=== PATIENT | male | born 1995 | race Caucasian/White ===

== ENCOUNTER 2017-04-02 16:23 | Emergency (ER) | payer OTHER ==
[2017-04-02 16:53] VITALS: RESP 18
[2017-04-02] MEDS ORDERED: RX INFO: IV CONTRAST WAS GIVEN 1 EACH MISC MISCELLANE PRN (17:19)
[2017-04-02] MEDS ORDERED: SODIUM CHLORIDE 0.9% 1,000 ML IV ONE (17:19)
[2017-04-02 17:43] LABS: Appearance,Urine Clear (Clear); Basophils # (A) 0.1 k/uL (0-0.2); Basophils % (A) 1 %; Bilirubin,Urine Negative (Negative); CH 31.6; CHCM 36.2; Eosinophils # (A) 0.1 k/uL (0-0.7); Eosinophils % (A) 2 %; Glucose,Urine (UA) Negative (Negative); HCT 51.6 % (39.0-53.0); HDW 2.63; HGB 17.4 gm/dL (13.0-17.5); Ketones,Urine 4+ (Negative); Leukocyte Esterase,Urine Negative (Negative); Luc # (Auto) 0.17; Luc % (Auto) 2; Lymphocytes # (A) 0.9 k/uL (1.0-4.8); Lymphocytes % (A) 12 %; MCH 29.5 pg (25.0-35.0); MCHC 33.7 g/dL (31.0-37.0); MCV 87.6 fL (80.0-100.0); Mean Platelet Volume 7.9; Monocytes # (A) 0.5 k/uL (0-1.0); Monocytes % (A) 6 %; Neutrophils # (A) 5.7 k/uL (1.3-7.7); Neutrophils % (A) 77 %; Nitrite,Urine Negative (Negative); PH, Urine 5.5 (5.0-8.0); Protein,Urine Trace (Negative); RBC 5.89 m/uL (4.30-5.90); RDW 14.1 % (11.5-15.5); Specific Gravity,Urine 1.023 (1.001-1.035); UA Billing (MACRO vs. MICRO) CHEM; WBC 7.4 k/uL (3.8-10.6); WBC (Perox) 6.79
[2017-04-02 17:57] LABS: ALT 40 U/L (21-72); AST 28 U/L (17-59); Alkaline Phosphatase 78 U/L (38-126); Anion Gap 14 mmol/L; Blood Urea Nitrogen 12 mg/dL (9-20); Calcium 9.7 mg/dL (8.4-10.2); Carbon Dioxide 22 mmol/L (22-30); Chloride 104 mmol/L (98-107); Glucose 78 mg/dL (74-99); Non-African American GFR(MDRD) >60 (>60 ml/min/1.73 sqM); Potassium 4.8 mmol/L (3.5-5.1); Sodium 140 mmol/L (137-145); Total Bilirubin 1.6 mg/dL (0.2-1.3); Total Protein 7.9 g/dL (6.3-8.2)
--- NOTE | 2017-04-02 18:01 | CT ---
EXAMINATION TYPE: CT abdomen pelvis w con DATE OF EXAM: 04/02/2017 COMPARISON: NONE HISTORY: Generalizd abdominal pain x 3 years, worse in last 3 days with nausea, vomiting and changes in bowel habits. CT DLP: 374.20 mGycm Automated exposure control for dose reduction was used. TECHNIQUE: Helical acquisition of images was performed from the lung bases through the pelvis. CONTRAST: Performed without Oral Contrast and with IV Contrast, patient injected with 100 mL of Omnipaque 300. FINDINGS: Lung bases are clear. There is no pleural effusion. Heart size is normal. Liver spleen pancreas gallbladder appear normal. Bile ducts are not dilated. There is an oval-shaped low-density 4 x 2.5 cm area involving the upper pole left kidney. This could be an adrenal mass. There is a 2 cm cortical cyst in the left kidney. There is no hydronephrosis. There is no retroperitoneal adenopathy. There is no ascites. Bladder distends smoothly. I see no inte stinal wall thickening. There are no dilated loops. I see no bony destructive process. There is no si gn of appendicitis. IMPRESSION: LEFT RENAL CORTICAL CYST. LOW-DENSITY MASS IN THE REGION OF LEFT ADRENAL GLAND HAS LOW DENSITY AND CO NSISTENT WITH A MYELOLIPOMA.
--- NOTE | 2017-04-02 18:24 | ED ---
Abdominal Pain HPI - General Chief Complaint: Abdominal Pain Stated Complaint: Abd Pain Time Seen by Provider: 04/02/17 17:01 Source: patient Mode of arrival: ambulatory Limitations: no limitations - History of Present Illness Initial Comments: Patient is a 22-year-old male with no significant past medical history who presents to the ED via private vehicle for evaluation of abdominal pain. The patient states that he is experienced intermittent abdominal pain over the course of 3 years. He does report that while he was incarcerated for 2 years he did have less frequent episodes of abdominal pain. Patient reports that over the past 2-3 days he's had worsening epigastric and periumbilical abdominal pain which is now associated with nausea, anorexia and fatigue. Patient reports that he usually experiences an abdominal pain in his epigastric region which she rates as a 3 out of 10. He reports he experiences this most days. Patient reports that over the past 2-3 days his pain has increased to an 8 out of 10 and if he tries to eat or drink anything and is a 10 out of 10. Patient reports she's never experienced pain this severe in the past. He does report that one time 3 years ago he had similar abdominal pain and was seen at outside facility, workup at that facility revealed no acute findings and he was discharged home without any interventions. Patient denies any fevers, chills, headache, chest pain, shortness of breath, constipation or diarrhea. He denies any recent illnesses. He denies any formal diagnosis of inflammatory or irritable bowel disease. He does report a family history of it inflammatory bowel disease and his maternal grandmother but no other known family history. Patient cannot identify any foods that make his symptoms any worse or any foods that he can currently tolerate. - Related Data Previous Rx's Medication Instructions Recorded Omeprazole [PriLOSEC] 10 mg PO DAILY #30 capsule. 04/02/17 Allergies Allergy/AdvReac Type Severity Reaction Status Date / Time No Known Allergies Allergy Verified 04/02/17 17:05 Review of Systems ROS Statement: Those systems with pertinent positive or pertinent negative responses have been documented in the HPI. ROS Other: All systems not noted in ROS Statement are negative. Constitutional: Denies: fever, chills Eyes: Denies: vision change ENT: Denies: throat pain Respiratory: Denies: cough Cardiovascular: Denies: chest pain, palpitations Endocrine: Denies: fatigue Gastrointestinal: Reports: abdominal pain, nausea, vomiting Genitourinary: Denies: urgency, dysuria, frequency Musculoskeletal: Denies: back pain Skin: Denies: rash, lesions Neurological: Denies: headache Psychiatric: Denies: anxiety, depression Hematological/Lymphatic: Denies: easy bleeding, easy bruising Past Medical History Past Medical History: No Reported History History of Any Multi-Drug Resistant Organisms: None Reported Past Surgical History: Tonsillectomy Past Psychological History: ADD/ADHD Smoking Status: Current every day smoker Past Alcohol Use History: Occasional Past Drug Use History: Marijuana General Exam Limitations: no limitations General appearance: alert, in no apparent distress Head exam: Present: atraumatic, normocephalic, normal inspection Eye exam: Present: normal appearance, PERRL, EOMI. Absent: scleral icterus, conjunctival injection, periorbital swelling ENT exam: Present: normal exam, mucous membranes moist Neck exam: Present: normal inspection Respiratory exam: Present: normal lung sounds bilaterally. Absent: respiratory distress, wheezes, rales, chest wall tenderness, accessory muscle use Cardiovascular Exam: Present: regular rate, normal rhythm, normal heart sounds. Absent: systolic murmur, diastolic murmur, rubs, gallop, clicks GI/Abdominal exam: Present: soft, tenderness, normal bowel sounds. Absent: distended, guarding, rebound, rigid, diminished bowel sounds, hyperactive bowel sounds, hypoactive bowel sounds, organomegaly, mass, bruit, pulsatile mass, hernia Rectal exam: Present: deferred Extremities exam: Present: normal inspection, full ROM, normal capillary refill. Absent: tenderness, pedal edema, joint swelling, calf tenderness Back exam: Present: normal inspection Neurological exam: Present: alert, oriented X3 Psychiatric exam: Present: normal affect, normal mood Skin exam: Present: warm, dry, intact, normal color. Absent: rash Course Vital Signs 04/02/17 16:51 Temperature 97.0 F L Pulse Rate 67 Respiratory 18 Rate Blood Pressure 140/96 O2 Sat by Pulse 99 Oximetry - Reevaluation(s) Reevaluation #1: Patient was reevaluated, is resting comfortably with IV fluids infusing. Reports feeling better now that he is hydrated. 04/02/17 18:03 Medical Decision Making - Medical Decision Making Patient was seen and evaluated Vital signs were reviewed, no acute findings History is obtained from patient and mother bedside Physical exam with mild abdominal tenderness Given the patient's history of intermittent severe abdominal pain and family history of inflammatory bowel disease I do have concern that he may have an underlying inflammatory process Labs and imaging were ordered Labs with mild elevation of bilirubin computed tomography scan with no acute findings was noted to have a adrenal mass, recommended outpatient follow-up All results were discussed with the patient. I advised him that he likely has gastritis or GERD. I advised the patient that he should start a PPI and bland diet. I encouraged the patient that if he is not tolerating solid foods he needs to drink plenty of salt sugar containing fluids such as Gatorade. All questions pertaining to care were answered to the best of my ability and the patient was discharged home in stable condition - Lab Data Result diagrams: 04/02/17 17:11 04/02/17 17:11 Lab Results 04/02/17 04/02/17 04/02/17 Range/Units 17:11 17:11 17:11 WBC 7.4 (3.8-10.6) k/uL RBC 5.89 (4.30-5.90) m/uL Hgb 17.4 (13.0-17.5) gm/dL Hct 51.6 (39.0-53.0) % MCV 87.6 (80.0-100.0) fL MCH 29.5 (25.0-35.0) pg MCHC 33.7 (31.0-37.0) g/dL RDW 14.1 (11.5-15.5) % Plt Count 205 (150-450) k/uL Neutrophils % 77 % Lymphocytes % 12 % Monocytes % 6 % Eosinophils % 2 % Basophils % 1 % Neutrophils # 5.7 (1.3-7.7) k/uL Lymphocytes # 0.9 L (1.0-4.8) k/uL Monocytes # 0.5 (0-1.0) k/uL Eosinophils # 0.1 (0-0.7) k/uL Basophils # 0.1 (0-0.2) k/uL Sodium 140 (137-145) mmol/L Potassium 4.8 (3.5-5.1) mmol/L Chloride 104 (98-107) mmol/L Carbon Dioxide 22 (22-30) mmol/L Anion Gap 14 mmol/L BUN 12 (9-20) mg/dL Creatinine 0.90 (0.66-1.25) mg/dL Est GFR (MDRD) Af Amer >60 (>60 ml/min/1.73 sqM) Est GFR (MDRD) Non-Af >60 (>60 ml/min/1.73 sqM) Glucose 78 (74-99) mg/dL Calcium 9.7 (8.4-10.2) mg/dL Total Bilirubin 1.6 H (0.2-1.3) mg/dL AST 28 (17-59) U/L ALT 40 (21-72) U/L Alkaline Phosphatase 78 (38-126) U/L Total Protein 7.9 (6.3-8.2) g/dL Albumin 5.0 (3.5-5.0) g/dL Urine Color Yellow Urine Appearance Clear (Clear) Urine pH 5.5 (5.0-8.0) Ur Specific Tye 1.023 (1.001-1.035) Urine Protein Trace H (Negative) Urine Glucose (UA) Negative (Negative) Urine Ketones 4+ H (Negative) Urine Blood Negative (Negative) Urine Nitrite Negative (Negative) Urine Bilirubin Negative (Negative) Urine Urobilinogen 3.0 (<2.0) mg/dL Ur Leukocyte Esterase Negative (Negative) Disposition Clinical Impression: Chronic abdominal pain, GERD (gastroesophageal reflux disease) Disposition: HOME SELF-CARE Condition: Good Instructions: Gastroesophageal Reflux in Children (ED), Diet for Stomach Ulcers and Gastritis (ED) Prescriptions: Omeprazole [PriLOSEC] 10 mg PO DAILY #30 capsule.dr Referrals: None,Stated [Primary Care Provider] - 1-2 days Zack Bernard MD [STAFF PHYSICIAN] - 1-2 days
[2017-04-02 18:39] VITALS: BP 130/82; PULSE 70; TEMP 97
== END 2017-04-02 18:39 | disposition home or self-care (01) ==
LOC: EC 16:23
DX: K21.9 Gastro-esophageal reflux disease without esophagitis (principal); R79.89 Other specified abnormal findings of blood chemistry; R11.0 Nausea; R63.0 Anorexia; R53.83 Other fatigue; F17.200 Nicotine dependence, unspecified, uncomplicated; Z83.79 Family history of other diseases of the digestive system
CPT/HCPCS: 36415; 80053; 85025; 81003; 74177; 99284; 96360; Q9967